=== PATIENT | male | born 1995 | race Caucasian/White ===

== ENCOUNTER 2022-07-22 16:02 | Emergency (ER) | payer BC, SELFPAY ==
--- NOTE | 2022-07-22 16:10 | XR_ITS ---
PROCEDURE INFORMATION: Exam: XR Left Shoulder Exam date and time: 07/22/2022 4:14 PM Age: 27 years old Clinical indication: Patient HX: Pain in left shoulder after lifting weights Wednesday night. TECHNIQUE: Imaging protocol: Radiologic exam of the Left shoulder. Views: 2 or more views. COMPARISON: No relevant prior studies available. FINDINGS: Bones/joints: No acute fracture or dislocation. Joint spaces preserved. Soft tissues: Normal. IMPRESSION: No acute osseous abnormality.
[2022-07-22 16:45] VITALS: BP 147/91; PULSE 81; RESP 18; TEMP 36.8; O2SAT 98; BMI 36.1
[2022-07-22 16:57] VITALS: BP 147/91; PULSE 81; RESP 18; TEMP 36.8; O2SAT 98
--- NOTE | 2022-07-22 17:07 | EXP.UTC ---
Discharge Plan Referrals Follow up/Referrals: Provider,Referral, [Primary Care Provider] - See instructions Madan Perrin DO [Staff Physician] - See instructions Activity Restrictions/Add. Instructions Additional Instructions/Restrictions: *RICE, Rest the extremity, Ice 15-20 minutes 3-4 times daily, Compress- wear the natasha wrap as discussed as much as possible to help reduce swelling and pain, Elevate the extremity when at rest If pain persists call for appointment *Elevate when resting? *Ibuprofen 600-800mg every 6-8 hours as needed for pain an inflammation. If need something more can take Tylenol in between doses of Ibuprofen to help Over the counter Muscle rubs may help with pain Avoid heavy lifting until cleared by your Primary Care Physician or Orthopedics Clinical Impressions Clinical Impression: Left shoulder strain Stand Alone Forms Stand Alone Forms: Work/School Release Instructions Patient Instructions: How To Perform RICE (Rest, Ice, Compress, Elevate), DI for Muscle Strain Discharge ED Provider: Sandy Zhou [facility] [place] Stated complaint: Left shoulder pain Mode of Arrival: Ambulatory Source of Information: Patient Limitations: No Limitations Time Seen by Provider: 07/22/22 17:07 Description of Symptoms (Recalled from Triage Doc. by RN): PATIENT STATES HE WAS LIFTING WEIGHTS IN THE GYM WEDNESDAY MORNING AND INJURED LEFT SHOULDER HEENT Symptoms (Recalled from RN notes): No Resp Symptoms (Recalled from RN notes): No Skin Symptoms (Recalled from RN notes): No MS Symptoms (Recalled from RN notes): Yes Functional Status (Recalled from RN notes): WNL History of Present Illness Provider Complaint: Patient states that he was lifting weights in the gym on Wednesday when he felt something pull in his left shoulder States that he iced it yesterday and took motrin and it helped some States that today it still hurt when he would use his left hand but is able to raise the arm ok but was worried and wanted to get it checked out Related Data Allergies Allergy/AdvReac Type Severity Reaction Status Date / Time No Known Allergies Allergy Verified 12/10/18 13:20 Worker's Comp Is this a Worker's Comp case?: No [facility] Disclaimer: The information contained in this section may have been updated after the patient was seen, as this information can be updated by other users. Surgical History (Updated 07/22/22 @ 16:54 by Samara George RN) History of tonsillectomy History of tympanostomy tube placement Social History (Updated 07/22/22 @ 16:55 by Samara George RN) Smoking Status: Unknown if ever smoked alcohol intake: never current occupational status: other Travel in the last 8 weeks: None ROS Obtained: Yes All systems reviewed & no additional complaints except as documented and Yes Systems reviewed as appropriate & no additional complaints except as documented Constitutional Constitutional: Reports system reviewed and no additional complaints, except as documented and Reports as per HPI ENT Ears, Nose, Mouth, and Throat: Reports system reviewed and no additional complaints, except as documented and Reports as per HPI Cardiovascular Cardiovascular: Reports system reviewed and no additional complaints, except as documented and Reports as per HPI Respiratory Respiratory: Reports system reviewed and no additional complaints, except as documented and Reports as per HPI Gastrointestinal Gastrointestingal: Reports system reviewed and no additional complaints, except as documented and as per HPI Musculoskeletal Musculoskeletal: Reports system reviewed and no additional complaints, except as documented and Reports as per HPI Comments: Pain in left shoulder after feeling something pull while lifting weights on Wednesday Physical Exam General General appearance: alert and in no apparent distress Respiratory Respiratory exam: Present normal lung sounds bilaterally; Absent respiratory distress or wh
== END 2022-07-22 17:24 | disposition home or self-care (01) ==
LOC: UTC 16:08
PROVIDERS: Emergency Provider Nurse Practitioner
DX: S46.912A Strain of unspecified muscle, fascia and tendon at shoulder and upper arm level, left arm, initial encounter (principal); X50.0XXA Overexertion from strenuous movement or load, initial encounter; X50.3XXA Overexertion from repetitive movements, initial encounter; Y93.B9 Activity, other involving muscle strengthening exercises; Y92.39 Other specified sports and athletic area as the place of occurrence of the external cause
CPT/HCPCS: 73030; 99212; 99213; G0463

== ENCOUNTER → 2022-07-23 16:01 | Outpatient (CLI) | payer BC, SELFPAY ==
--- NOTE | 2022-07-23 16:06 | MR_ITS ---
PROCEDURE INFORMATION: Exam: MR Left Upper Extremity Joint Without Contrast; Shoulder Exam date and time: 07/23/2022 4:07 PM Age: 27 years old Clinical indication: Pain; Shoulder; Left; Additional info: Left shoulder pain after feeling pop 2 days ago. Weakness in arm. Limited rom TECHNIQUE: Imaging protocol: Magnetic resonance imaging of the Left upper extremity without contrast. Exam focused on the shoulder. COMPARISON: CR XR SHOULDER LT MIN 2V 07/22/2022 4:14 PM FINDINGS: Bones and cartilage: Acromioclavicular arthropathy is identified, with effacement of the underlying tissue planes. No dislocation of the glenohumeral joint. Joint spaces: A small cystic collection of fluid is identified anterior to the coracoid process. Small amount of fluid within the subscapularis recess. Small acromioclavicular effusion, with mild adjacent soft tissue edema. A C-shaped acromion process is visualized. Glenoid labrum: A probable sublabral foramen is identified anteriorly. There is heterogeneous signal intensity of the anterior aspect of the labrum, and labral tear is difficult to exclude. Bursae: Minimal fluid within the subdeltoid/subacromial bursa. Supraspinatus tendon: Tendinosis of the supraspinatus tendon. Tendon tear is suggested on series T2 3D images, although not well-defined on the remaining sequences. Infraspinatus tendon: Increased signal intensity within the infraspinatus tendon, consistent with tendinosis and partial tear. Subscapularis tendon: Heterogeneous signal intensity of the subscapularis tendon, consistent with tendinosis. Teres minor tendon: No evidence of tear. Tendon of biceps brachii: Tendinosis and partial tear visualized of the long of the biceps tendon. Glenohumeral ligaments: Heterogeneous signal intensity of the inferior glenohumeral ligament, without definitive tear. Muscles: No visualized acute abnormality. Soft tissues: See above. Lymph nodes: Nonspecific axillary lymph nodes. IMPRESSION: 1. Tendinosis and partial tear of the infraspinatus tendon. 2. Tendinosis of the subscapularis tendon. Tendinosis and partial tear visualized of the long of the biceps tendon. 3. Tendinosis of the supraspinatus tendon. Tendon tear is equivocal. 4. Acromioclavicular arthropathy is identified, with effacement of the underlying tissue planes. 5. Minimal fluid within the subdeltoid/subacromial bursa. 6. Additional findings described above.
== END ==
LOC: RAD 16:02
PROVIDERS: PCP Nurse Practitioner Family; Visit Provider Nurse Practitioner Family
DX: S46.912A Strain of unspecified muscle, fascia and tendon at shoulder and upper arm level, left arm, initial encounter (principal)
CPT/HCPCS: 73221

== ENCOUNTER 2022-08-31 11:00 | Outpatient (RCR) | payer BC, SELFPAY ==
--- NOTE | 2022-07-31 14:58 | HMH.OTOPEV ---
OT Inpatient Evaluation Rehab OT Outpatient Eval Start: 07/31/22 14:29 Freq: Status: Active Protocol: Document 07/31/22 14:30 CHRISTOPHERCIRA (Rec: 07/31/22 14:51 MIRIAMBRITTNEE [id number]) E-signed By Diana Agee, OT Outpatient Therapy Subjective History Subjective History 27 year old male referred to skilled OP OT services for left shoulder pain. Patient injured [facility] , he was bench pressing heavy weights at the gym when he felt a pop in his left shld. X-ray completed to [facility] was negative for acute fracture or dislocation. MRI performed on 07/23/22 with followin. Tendinosis and partial tear of the infraspinatus tendon. 2. Tendinosis of the subscapularis tendon. Tendinosis and partial tear visualized of the long of the biceps tendon. 3. Tendinosis of the supraspinatus tendon. Tendon tear is equivocal. 4. Acromioclavicular arthropathy is identified, with effacement of the underlying tissue planes. 5. Minimal fluid within the subdeltoid/subacromial bursa. 6. Additional findings described above. Patient has a f/u on 08/04/22 and plans to return to work in the next couple of weeks. Patient is currently employee at [employer]. [facility] of [facility] is [facility]. Chief Complaint Pain,Weakness Symptom Type Ache Symptoms Relieved By Nothing Symptoms Aggravated By Physical Activity Prior Functional Limitations None Current Functional Limitations Reaching,Lifting,Recreation Activity Symptom Description Constant and Continuous Level of pain today (0-10) 0 Pain scale - at its best (0-10) 0 Pain scale - at its worst (0-10) 7 Shoulder/Elbow Eval Shoulder Objective Measurements Shoulder ROM Left Shoulder Abduction Active Range of 160 Motion (degrees)
== END 2022-08-31 11:05 | disposition home or self-care (01) ==
LOC: OT 11:00
PROVIDERS: PCP Nurse Practitioner Family; Visit Provider Orthopaedic Surgery
DX: M25.512 Pain in left shoulder (principal); S49.92XA Unspecified injury of left shoulder and upper arm, initial encounter; M75.22 Bicipital tendinitis, left shoulder; M75.102 Unspecified rotator cuff tear or rupture of left shoulder, not specified as traumatic; M67.912 Unspecified disorder of synovium and tendon, left shoulder
CPT/HCPCS: 97010; 97014; 97035; 97110; 97140; 97165; 97530; G0283

== ENCOUNTER → 2025-02-21 06:54 | Outpatient (CLI) | payer BC, SELFPAY ==
--- OUTSIDE RECORDS SUMMARY | 2025-02-21 06:57 | XMS_ITS | Clinical Summary ---
[facility] Address [address] [place] [address] Care Team Providers Care Nurse First Assist Name Role Phone Adelina More Primary Care Provider [phone] Allergies No known active allergies Medications buPROPion SR (WELLBUTRIN SR) 150 MG 12 hr tablet Take 1 tab po qd x 3 days, then increase to 1 tab po BID 60 tablet 2 01/30/2019 Active Active Problems No known active problems Social History Tobacco Use Types Packs/Day Years Used Date Smoking Tobacco: Every Day Cigars Smokeless Tobacco: Never Alcohol Use Standard Drinks/Week Comments Yes 0 (1 standard drink = 0.6 oz pur e alcohol) Abuse Screen Answer Date Recorded Unsafe at Home or Work/School Not on file Feels Threatened by Someone? Not on file 05/2023 Does Anyone Keep You from Co ntacting Others or Doint Things Outside the Home? Not on file 04/08/2023 Physical Sign of Abuse Present Not on file 1 Housing Stability Answer Date Recorded Current Living Arrangements Not on file 03/28 Potentially Unsafe Housing Conditions Not on jeanette e 04/08/2023 Family and Community Support Answer Hoang e Recorded Help with Day-to-Day Activities Not on file 04/08/2023 Lonely or Isolated Not on file 04/08/2023 Employment Answer Date Recorded Do you want help finding or keeping work or a samantha b? Not on file 04/08/2023 Disabilities Answer Date Recorded Concentrating, Remembering, or Making Decisions Difficulty Not on file 04/08/2023 Doing Errands Independently Difficulty Not on fi le 04/08/2023 Education Answer Date Recorded Help with school or training? Not on file Preferred Language Not on file 04/08/2023 Sex and Gender Information Value Date Recorded Sex Assigned at Not on file Legal Sex Male 3:27 PM EDT Gender Identity Not on file Sexual Orientation Not on file Last Filed Vital Signs Vital Sign Reading Time Taken Comments Blood Pressure 112/70 01/20/2019 2:07 PM EDT Pulse 78 01/20/2019 2:07 PM EDT Temperature 36.9 C (98.4 F) 01/20/2019 2:07 PM EDT Respiratory Rate 16 01/20/2019 2:07 PM EDT Oxygen Saturation - - Inhaled Oxygen Concentration - - Weight 93.9 kg (207 lb) 01/20/2019 2:07 PM EDT Height 177.8 cm (5' 10 ) 01/20/2019 2:07 PM EDT Body Mass Index 29.7 01/20/2019 2:07 PM EDT Plan of Treatment Health Maintenance Due Date Last Done Comments TDAP/TD VACCINES (1 - Tdap) 2015 ANNUAL PHYSICAL 01/20/2019 HEPATITIS C SCREENING 01/20/2019 COVID-19 Vaccine (2023-2 5 season) 2024 INFLUENZA VACCINE 03/28/2025 Pneumococcal Vaccine 0-49 Aged Out No longer eligible based on patient's age to complete this topic Insurance [address] [place], [place] [id number] [place] [address] PPO Care Teams Nurse First Assist Relationship Specialty Start Date End Date Adelina More DO [address] [place] [address] PCP - General Family Medicine 01/20/19
== END ==
LOC: SL 06:55
PROVIDERS: PCP Internal Medicine; Visit Provider Internal Medicine
DX: G47.33 Obstructive sleep apnea (adult) (pediatric) (principal); G47.36 Sleep related hypoventilation in conditions classified elsewhere
CPT/HCPCS: G0399

== ENCOUNTER 2025-06-22 15:13 | Outpatient (CLI) | payer BC, SELFPAY ==
--- OUTSIDE RECORDS SUMMARY | 2025-06-22 15:15 | XMS_ITS | Clinical Summary ---
Author Organization [facility] Address [address] [place] [address] Care Team Providers Care Multifocal Button Generator Name Role Phone Adelina More Primary Care Provider [phone]- [phone] Allergies No known active allergies Medications buPROPion [...] ANNUAL PHYSICAL 01/20/2019 HEPATITIS C SCREENING 01/20/2019 INFLUENZA VACCINE 01/26/2025 Pneumococcal Vaccine 0-49 Aged Out No longer eligible based on patient's age to complete this topic Insurance [address] [place], [place] [id number] [place] [address] PPO Member Subscriber Plan / Payer (Ef fective 2018-Present) Name:Efren Dodge Relation to Subscriber:Self Name:Efren Dodge Payer ID:[id number] ([facility]) Type:Not on file Address: [facility] [id number] [place] [id number] Care Teams Multifocal Button Generator Relationship Specialty Start Date End Date Adelina More DO [address] [place] [address] PCP - General Family Medicine 01/20/19
--- OUTSIDE RECORDS SUMMARY | 2025-06-22 15:15 | XMS_ITS | Clinical Summary ---
Author Organization [facility] Address [address] [place] [id number] Phone [email or web address] Care Team Providers Care Fitting Room Inspector Name Role Phone Provider, No Primary Care Provider Unavailabl e Allergies Active Allergy Reactions Criticality Noted Date Comments Meclizine Hives Medium 05/14/2020 Medications Multiple Vitamin (multivitamin) tablet Take 1 tablet by mouth 1 (one) time each day. Active ibuprofen (MOTRIN) 200 MG tablet Take 200 mg by mouth every 6 (six) hours if needed for mild pain. Active Active Problems No known active problems Social History Tobacco Use Types Packs/Day Years Used Date Smoking Tobacco: Former Cigarettes Q uit: 02/2021 Smokeless Tobacco: Never Tobacco Cessation:Counseling Given: Not Answered Intimate Partner Violence Answer Date R ecorded Insults You Not on file 10/09/2020 Threatens You Not on file 10/09/2020 Screams at You Not on file 10/09/2020 Physically Hurt Not on file 10/09/2020 Intimate Partner Violence Score Not on file 10/09/2020 Depression Answer Date Recorded PHQ Total Score 0 08/04/2022 Stress Answer Date Recorded Stress in your Life Not on file 05/01/2024 Dealing with Stress 3 05/01/2024 Sex and Gender Information Value Date Recorded Sex Assigned at Not on file Legal Sex Male 12:16 PM CDT Gender Identity Not on file Sexual Orientation Not on file Last Filed Vital Signs Vital Sign Reading Time Taken Comments Blood Pressure 132/92 03/22/2024 6:41 AM EDT Pulse 89 03/22/2024 6:41 AM EDT Temperature 36.7 C (98 F) 03/22/2024 6:41 AM EDT Respiratory Rate 18 03/22/2024 6:41 AM EDT Oxygen Saturation 90% 03/22/2024 6:41 AM EDT Inhaled Oxygen Concentration - - Weight 115 kg (253 lb) 03/07/2025 9:12 AM EDT Height 175.3 cm (5' 9 ) 03/07/2025 9:12 AM EDT Body Mass Index 37.36 03/07/2025 9:12 AM EDT Plan of Treatment Health Maintenance Due Date Last Done Comments Dental Cleaning/Exam 1996 HIV Screening 1996 Hepatitis C Screening 1996 HPV Immunization (1 - Male 3 -dose series) 2011 Hep B Infection Screening - Triple Screen 2014 Hepatitis B Immunization (1 of 3 - 19+ 3-dose series) 2015 Annual Preventive Exam 03/15/2024 03/15/2023 Covid-19 Immunization (1 - 2 025-26 season) 2025 Influenza Immunization (#1) 2025 Tetanus Diphtheria and Pertu ssis Immunization (2 - Td or Tdap) 02/14/2032 02/13/2022 HIB Immunization Aged Out No longer e ligible based on patient's age to complete this topic Hepatitis A Immunization Aged Out No longer eligible based on patient's age to complete this topic Pneumococcal Immunization Aged Out No longer eligible based on patient's age to complete this topic Polio Immunization Aged Out No longer eligible based on patient's age to complete this topic Varicella Immunization Aged Out No lo nger eligible based on patient's age to complete this topic Insurance OPT OUT NO COPAY NB Care Teams Fitting Room Inspector Relationship Specialty Start Date End Date Provider, RA Colin [address] PCP - General Chuck Tender 04/23/21
[2025-06-22 15:16] LABS: Adenovirus F 40/41, stool Not Detected (NotDetected); Clostridium Difficile A/B, PCR Not Detected (NotDetected); Cyclospora Cayetanesis Not Detected (NotDetected); Plesimonas Shigalloides, PCR Not Detected (NotDetected); Salmonella, PCR Not Detected (NotDetected); Shiga-like toxin E coli Not Detected (NotDetected); Shigella Enterovasive E coli Not Detected (NotDetected); Vibrio, PCR Not Detected (NotDetected); Yersinia Entercolitica, PCR Not Detected (NotDetected)
== END 2025-06-22 23:59 | disposition home or self-care (01) ==
LOC: LAB 15:14
PROVIDERS: PCP Internal Medicine; Visit Provider Internal Medicine
DX: K52.9 Noninfective gastroenteritis and colitis, unspecified (principal)
CPT/HCPCS: 87507